=== PATIENT | female | born 1950 | race Caucasian/White ===

== ENCOUNTER 2024-10-09 10:06 | Emergency (ER) | payer OTHER ==
[~2024-10-09] VITALS: Ht 154.9 cm; Wt 83.9 kg
[2024-10-09] MEDS ORDERED: COZAAR25 MG (10:35)
[2024-10-09] MEDS ORDERED: SYNTHROID88 MCG (10:36)
[2024-10-09] MEDS ORDERED: BISOPROLOL-HCT1 EACH (10:36)
[2024-10-09] MEDS ORDERED: TRIAMCINOLONE ACETONIDE 40 MG/ML VIAL IM ONE (11:30)
[2024-10-09] MEDS ORDERED: TRIAMCINOLONE ACETONIDE 40 MG/ML VIAL ONE (12:10)
== END 2024-10-09 12:28 | disposition home or self-care (01) ==
LOC: ER 10:08
DX: M25.511 Pain in right shoulder (principal); I10 Essential (primary) hypertension; E03.8 Other specified hypothyroidism
CPT/HCPCS: 73030; 96372; 99283; J3301